=== PATIENT | male | born 1980 | race Caucasian/White ===

== ENCOUNTER 2024-04-18 13:38 | Outpatient (REF) | payer MEDICAID, SELFPAY ==
--- OUTSIDE RECORDS SUMMARY | 2024-04-18 14:40 | XMS_ITS | Encounter Summary ---
Author Organization [employer] Address [address] [facility] [address] [place] [address] Care Team Providers Care Newspaper Journalist Name Role Phone Unavailable Primary Care Provider Unavailabl e Reason for Visit * Reason Comments Pre-visit Planning SDOH negative, Tobac co screening negative. Encounter Details Date Type Department Care Team ([facility] st Contact Info) Description 04/11/2024 Patient Outreach [facility] MED & PEDS [address] [place] [address] Justen Deal MD [address] [place] [address] Pre-visit Planning (SDOH negative, Tobacco screening negative. ) Social History Tobacco Use Types Packs/Day Years Used Date Smoking Tobacco: Never Assessed Housing Stability Answer Date Recorded What is your housing situation today? I have cassi sing 04/11/[address] you li ve. Do you have problems with any of the following? None of the above 04/11/2024 Food Insecurity Answer Date Recorded Within the past 12 months, y ou worried that your food would run out before you got money to buy more: Never True 04/11/2024 Within the past 12 months,th e food you bought just didn't last and you didn't have enough money to get more: Never True Transportation Answer Date Recorded In the past 12 months, has l ack of transportation kept you from medical appts, meetings, work or from getting things needed for daily living? No 04/11/2024 Utilities Answer Date Recorded In the past 12 months, has t he electric, gas, oil or water company threatened to shut off services in your home? No 04/11/2024 Internet Access Answer Date Recorded Internet Access Q1 Yes 04/11/2024 Internet Access Q2 Not on file 04/11/2024 Sex and Gender Information Value Date Recorded Sex Assigned at Male 04/04/2024 10:30 AM EST Legal Sex Male 10:30 AM EST Gender Identity Male 04/18/2024 12:44 PM EST Sexual Orientation Straight 04/18/2024 12 :44 PM EST documented as of this encounter Progress Notes * Renée Malave - 04/11/2024 3:45 PM EST CC Renée Leon placed successful outbound call to patient for pre-visit planning. Patient name and confirmed. Patient confirms appt date and time, and has transportation arrangements. Biggest concern for appointment at this time is patient has a mass on his lower back. Appropriate screenings completed in anticipation of appointment. documented in this encounter Plan of Treatment Upcoming Encounters Date Type Department Care Team (Late st Contact Info) Description 07/17/2024 10:45 AM EDT Office Visit [facility] MED & PEDS [address] [place] [address] Justen Deal MD [address] [place] [address] documented as of this encounter Visit Diagnoses Not on filedocumented in this encounter
--- OUTSIDE RECORDS SUMMARY | 2024-04-18 14:40 | XMS_ITS | Encounter Summary ---
Author Organization [employer] Address [address] [place] [address] Care Team Providers Care Lacing Presser Name Role Phone Justen Deal MD Primary Care Provider [phone] Encounter Details Date Type Department Care Team (Latest Contact Info) Description 04/18/2024 Travel Social History Tobacco Use Types Packs/Day Years Used Date Smoking Tobacco: Former Cigarettes Smokeless Tobacco: Never Comments:Smoked 1 pack a wee k x 25 years. Quit smoking 1 year ago. Alcohol Answer Date Recorded Q1: How often do you have a drink containing alc ohol? 2 04/18/2024 Q2: How many drinks containi ng alcohol do you have on a typical day when you are drinking? 0 04/18/2024 Q3: How often do you have six or more drinks on one occasion? 2 04/18/2024 Depression Answer Date Recorded Patient Health Questionnaire-9 Score 0 04/18/2024 Patient Health Questionnaire-9 Score 0 04/18/2024 Last PHQ-9: Questionnaire Data Not on file 0 04/18/2024 Housing Stability Answer Date Recorded What is your housing situation today? I have cassi rodrigues 04/11/[address] you li [...] off services in your home? No 04/11/2024 Depression Answer Date Recorded Patient Health Questionnaire-2 Score 0 04/18/2024 Internet Access Answer Date Recorded Internet Access Q1 Yes 04/11/2024 Internet Access Q2 Not on file 04/11/2024 Sex and Gender Information Value Date Recorded Sex Assigned at Male 04/04/2024 10:30 AM EST Legal Sex Male 10:30 AM EST Gender Identity Male 04/18/2024 12:44 PM EST Sexual Orientation Straight 04/18/2024 12 :44 PM EST documented as of this encounter Plan of Treatment Upcoming Encounters Date Type Department Care Team (Late st Contact Info) Description 07/17/2024 10:45 AM EDT Office Visit [facility] MED & PEDS [address] [place] [address] Justen Deal MD [address] [place] [address] documented as of this encounter Visit Diagnoses Not on filedocumented in this encounter Additional Health Concerns Assessment Noted Time PHQ-9 Depression Total Score: 0 04/18/19 25 1:53 PM EST documented as of this encounter Care Teams Lacing Presser Relationship Specialty Start Date End Date Justen Deal MD [address] [place] [address] PCP - General Internal Medicine 04/18/24 documented as of this encounter
--- OUTSIDE RECORDS SUMMARY | 2024-04-18 14:40 | XMS_ITS | Clinical Summary ---
Author Organization [facility] ity Address [address] [place] [address] Care Team Providers Care Supervisor Contact Lens Name Role Phone Unavailable Primary Care Provider Unavailabl e Social History Tobacco Use Types Packs/Day Years Used Date Smoking Tobacco: Never Assessed Sex and Gender Information Value Date Recorded Sex Assigned at Not on file Gender Identity Not on file Sexual Orientation Not on file Plan of Treatment Health Maintenance Due Date Last Done Comments DTaP,Tdap,and Td Vaccines (1 - Tdap) 02/23/2000 Hepatitis B Vaccines (1 of 3 - 19+ 3-dose series) 02/23/2000 COVID-19 Vaccine (2023-2 5 season) 2023 Influenza Vaccine (#1) 2023 Cholesterol Screening (Lipid Panel) 12/30/2023 Depression Screening 12/30/2023 HIV Screening 12/30/2023 Hepatitis C Screening 12/30/2023 Social Influencers of Health Screening 12/30/2023 HIB Vaccines Aged Out No longer eligi ble based on patient's age to complete this topic HPV Vaccines Aged Out No longer eligi ble based on patient's age to complete this topic Hepatitis A Vaccines Aged Out No long er eligible based on patient's age to complete this topic IPV Vaccines Aged Out No longer eligi ble based on patient's age to complete this topic MMR Vaccines Aged Out No longer eligi ble based on patient's age to complete this topic Meningococcal ACWY Vaccine Aged Out N o longer eligible based on patient's age to complete this topic Pneumococcal Vaccine: Pediat rics (0 to 5 Years) and At-Risk Patients (6 to 64 Years) Aged Out No longer eligible b ased on patient's age to complete this topic RSV Immunization Patients Un jose 20 months Aged Out No longer eligible b ased on patient's age to complete this topic Varicella Vaccines Aged Out No longer eligible based on patient's age to complete this topic
--- OUTSIDE RECORDS SUMMARY | 2024-04-18 14:40 | XMS_ITS | Clinical Summary ---
Author Organization [employer] Address [address] [facility] [address] [place] [address] Care Team Providers Care Fac Engineer Name Role Phone Justen Deal MD Primary Care Provider [phone] Allergies Active Allergy Reactions Criticality Noted Date Comments Penicillin G Rash Low 04/18/2024 Medications Omeprazole 20 MG tablet delayed-releaseI ndications:Gastr oesophageal reflux disease without esophagitis Take 1 tablet (20 mg) by mouth Once per day. 30 tablet 3 Active Diclofenac Sodium 1 % gelIndications:C hronic midline low back pain without sciatica To apply to the affected area 3 times a day 100 g Active Active Problems Problem Noted Date Diagnosed Date Gastroesophageal reflux disease without esophagi tis 04/18/2024 Encounters Date Type Department Care Team Description 04/18/2024 1:00 PM EST Office Visit [facility] MED & PEDS [address] [place] [address] Justen Deal MD Gastroesophageal reflux disease without esophagitis (Primary Dx); Dietary counseling; Exercise counseling; Lactose intolerance; Chronic midline low back pain without sciatica; Dislocation of left shoulder joint, initial encounter; Overweight (BMI 25.0-29.9) 04/18/2024 Travel 04/11/2024 Patient Outreach [facility] MED & PEDS [address] [place] [address] Justen Deal MD Pre-visit Planning (SDOH negative, Tobacco screening negative. ) from Last 3 Months Family History Medical History Relation Name Comments Heart disease Father Diabetes type II Mother Heart failure Mother Hypertension Mother Kidney failure Mother Relation Name Status Comments Father Mother Social History Tobacco Use Types Packs/Day Years Used Date Smoking Tobacco: Former Cigarettes Smokeless Tobacco: Never Tobacco Cessation:Counseling Given: No Comments:Smoked 1 pack a week x 25 years. Quit smoking 1 year [...] Orientation Straight 04/18/2024 12 :44 PM EST Last Filed Vital Signs Vital Sign Reading Time Taken Comments Blood Pressure 126/84 04/18/2024 12:56 PM EST Pulse 84 04/18/2024 12:56 PM EST Temperature 36.9 ??C (98.4 ??F) 04/18/2024 12:[address] Respiratory Rate 20 04/18/2024 12:56 PM EST Oxygen Saturation 98% 04/18/2024 12:56 PM EST Inhaled Oxygen Concentration - - Weight 103 kg (227 lb) 04/18/2024 12:56 PM EST Height 190.5 cm (6' 3 ) 04/18/2024 12:56 PM EST Body Mass Index 28.37 04/18/2024 12:56 PM EST Plan of Treatment Upcoming Encounters Date Type Department Care Team (Late st Contact Info) Description 07/17/2024 10:45 AM EDT Office Visit [facility] MED & PEDS [address] [place] [address] Justen Deal MD [address] [place] [address] Health Maintenance Due Date Last Done Comments HIV Screening 1981 Lipid Panel 1981 Family Planning (PISQ) 02/23/1996 Hepatitis C Screening 1999 DTaP/Tdap/Td Vaccines (1 - Tdap) 02/23/2000 Hepatitis B Vaccines (1 of 3 - 19+ 3-dose series) 02/23/2000 COVID-19 Vaccine ( - 2023-2 5 season) 2023 Influenza Vaccine (#1) 2023 SDOH Screening 04/11/2025 04/11/2024 Alcohol/Substance Use Screening 04/18/2025 04/18/2024 Depression Screening 04/18/2025 04/18/2024, 04/18/2024 Tobacco Screening 04/18/2025 04/18/2024 Zoster Vaccines (1 of 2) 2031 RSV Patients and Patients Aged 60 years or older (1 - 1-dose 75+ series) 02/23/2056 HIB Vaccines Aged Out No longer eligi [...] patient's age to complete this topic Meningococcal Vaccine Aged Out No stephen bronwyn eligible based on patient's age to complete this topic Pneumococcal Vaccine: Pediatrics (0 to 5 Years) and At-Risk Patients (6 to 64 Years) Aged Out No longer eligible b ased on patient's age to complete this topic RSV under 20 months Aged Out No longe r eligible based on patient's age to complete this topic Rotavirus Vaccines Aged Out No longer eligible based on patient's age to complete this topic Insurance [facility] C3 Care Teams Fac Engineer Relationship Specialty Start Date End Date Justen Deal MD [address] [place] [address] PCP - General Internal Medicine 04/18/24
--- OUTSIDE RECORDS SUMMARY | 2024-04-18 14:40 | XMS_ITS | Encounter Summary ---
Author Organization [employer] Address [address] [facility] [address] [place] [address] Care Team Providers Care Cooking Show Host Name Role Phone Justen Deal MD Primary Care Provider [phone]- [phone] Reason for Referral * Consultation (Routine) - Pending Review Specialty Diagnoses / Procedures Referred By Nate carlos Referred To Contact Physical Therapy Diagnoses Chronic midline low back pain without sciatica Justen Deal MD [address] [place] [address] Phone: tel: fax: Referral ID Status Reason Start Date Expiration Date Visits Requested Visits Authorized [id number] Pending Review Specialty Services Required 04/18/2024 04/18/2025 1 1 * Consultation (Routine) - Pending Review Specialty Diagnoses / Procedures Referred By Nate carlos Referred To Contact Gastroenterology Diagnoses Gastroesophageal reflux disease without esophagitis Justen Deal MD [address] [place] [address] Phone: tel: fax: Referral ID Status Reason Start Date Expiration Date Visits Requested Visits Authorized [id number] Pending Review Specialty Services Required 04/18/2024 04/18/2025 1 1 Reason for Visit * Reason Comments GERD Back Pain Encounter Details Date Type Department Care Team (Latest Contact Info) Description 04/18/2024 1:00 PM EST Office Visit [facility] MED & PEDS [address] [place], [place] [phone] Justen Deal MD [address] [place], [place] [phone] Gastroesophageal reflux disease without esophagitis (Primary Dx); Dietary counseling; Exercise counseling; Lactose intolerance; Chronic midline low back pain without sciatica; Dislocation of left shoulder joint, initial encounter; Overweight (BMI 25.0-29.9) Social History Tobacco Use Types Packs/Day Years [...] PM EST documented as of this encounter Last Filed Vital Signs Vital Sign Reading [...] Mass Index 28.37 04/18/2024 12:56 PM EST documented in this encounter Plan of Treatment Upcoming Encounters Date Type Department Care Team (Late st Contact Info) Description 07/17/2024 10:45 AM EDT Office Visit [facility] PEDS [address] [place] [address] Justen Deal MD [address] [place] [address] Scheduled Orders Name Type Priority Associated Diagnoses Orde r Schedule XR Lumbar Spine Complete 4+ Views Imaging Routine Chronic midline low back pain without sciatica Expected: 04/18/2024, Expires: 04/18/2025 CBC auto differential Lab Routine Gastroesophageal reflux disease without esophagitis Expected: 04/18/2024 (Approximate), Expires: 04/18/2025 Comprehensive Metabolic Panel Lab Routine Gastroesophageal reflux disease without esophagitis Overweight (BMI 25.0-29.9) Expected: 04/18/2024 (Approximate), Expires: 04/18/2025 Hepatitis C Antibody with Reflex to HCV, RNA, Quantitative, Real-Time PCR Lab Routine Gastroesophageal reflux disease without esophagitis Lactose intolerance Overweight (BMI 25.0-29.9) Expected: 04/18/2024, Expires: 04/18/2025 HIV-1/2 Antigen and Antibodies, Fourth Generation, with Reflexes Lab Routine Gastroesophageal reflux disease without esophagitis Lactose intolerance Overweight (BMI 25.0-29.9) Expected: 04/18/2024 (Approximate), Expires: 04/18/2025 Lipid Panel, Standard Lab Routine Gastroesophageal reflux disease without esophagitis Lactose intolerance Overweight (BMI 25.0-29.9) Expected: 04/18/2024 (Approximate), Expires: 04/18/2025 TSH W/Reflex to FT4 Lab Routine Gastroesophageal reflux disease without esophagitis Lactose intolerance Overweight (BMI 25.0-29.9) Expected: 04/18/2024 (Approximate), Expires: 04/18/2025 Scheduled Referrals Name Type Priority Associated Diagnoses Order Schedule Referral to Gastroenterology Outpatient Referral Routine Gastroesophageal reflux disease without esophagitis Expected: 04/18/2024 (Approximate), Expires: 04/18/2025 Referral to Physical Therapy Outpatient Referral Routine Chronic midline low back pain without sciatica Expected: 04/18/2024 (Approximate), Expires: 04/18/2025 documented as of this encounter Visit Diagnoses Diagnosis Gastroesophageal reflux disease without esophagitis- Primary Esophageal reflux Dietary counseling Dietary surveillance and counseling Exercise counseling Lactose intolerance Intestinal disaccharidase deficiencies and disaccharide malabsorption Chronic midline low back pain without sciatica Dislocation of left shoulder joint, initial encounter Overweight (BMI 25.0-29.9) Overweight documented in this encounter Additional Health Concerns Assessment Noted Time PHQ-9 Depression Total Score: 0 04/18/19 1:53 PM EST documented as of this encounter Care Teams Cooking Show Host Relationship Specialty Start Date End Date Justen Deal MD [address] [place] [id number] PCP - General Internal Medicine 04/18/24 documented as of this encounter
[2024-04-18 17:49] LABS: MANUAL DIFF FLAG NO
[2024-04-18 17:58] LABS: Basophils Percent Auto 0.2 % (0-2); Eosinophils Absolute Auto 0.1 X10*3/uL (0.0-0.4); Eosinophils Percent Auto 1.3 % (0-4); Hematocrit 49.2 % (42.0-52.0); Hemoglobin 16.2 g/dl (14.0-18.0); Imm Gran Abs Auto 0.03 X10*3/uL (0.00-0.03); Imm Gran Pct Auto 0.3 % (0.0-0.4); Lymphocytes Absolute Auto 2.1 X10*3/uL (1.2-4.9); Lymphocytes Percent Auto 22.9 % (20-40); Mean Corpuscular HGB Conc 32.9 g/dl (31.0-36.0); Mean Corpuscular Hemoglobin 29.3 pg (27.0-33.0); Mean Platelet Volume 10.4 fL (9.4-12.4); Monocytes Absolute Auto 0.6 X10*3/uL (0.1-1.2); Monocytes Percent Auto 6.3 % (2-11); Neutrophils Absolute Auto 6.4 x10*3/uL (2.0-8.3); Platelet Count 246 X10*3/uL (160-400); Red Blood Count 5.53 X10*6/uL (4.60-5.80); Red Cell Distribution Width 13.1 % (11.0-16.0); White Blood Count 9.3 X10*3/uL (4.8-10.8)
[2024-04-18 18:20] LABS: Alanine Aminotransferase 88 U/L (0-40); Albumin Level 4.6 g/dL (3.5-5.0); Alkaline Phosphatase 73 U/L (39-117); Anion Gap 11 (12-20); Aspartate Amino Transferase 53 U/L (5-37); Bilirubin Total 0.4 mg/dL (0.0-1.0); Blood Urea Nitrogen 14 mg/dL (9-16); Carbon Dioxide 24 mmol/L (22-29); Chloride 108 mmol/L (96-108); Cholesterol 149 mg/dL (<200); Estimated Glomerular Filt Rate > 60; Glucose Random 100 mg/dL (60-115); HDL Cholesterol 31 mg/dL (>40); LDL Cholesterol Calculated 92 mg/dL (<100); Sodium 139 mmol/L (135-145); Triglycerides 131 mg/dL (<150)
[2024-04-18 18:22] LABS: TSH reflex Free T4 1.44 uIU/mL (0.32-4.0)
[2024-04-19 03:56] LABS: HIV AB/AG Nonreactive (Nonreactive); HIV Num 1 0.04 S/CO (0.00-0.99); ~HepC Num1 0.14 S/CO (0.00-0.79); ~Hepatitis C Antibody Nonreactive (Nonreactive)
== END 2024-04-18 13:39 | disposition home or self-care (01) ==
LOC: HO.CHCLDS 13:38
PROVIDERS: Visit Provider Internal Medicine
DX: K21.9 Gastro-esophageal reflux disease without esophagitis (principal); E73.9 Lactose intolerance, unspecified; E66.3 Overweight
CPT/HCPCS: 36415; 80053; 80061; 84443; 85025; 86803; 87389

== ENCOUNTER 2024-04-20 14:02 | Outpatient (REF) | payer MEDICAID, SELFPAY ==
--- NOTE | ~2024-04-20 | XR_ITS ---
EXAMINATION: XR LUMBOSACRAL SPINE CLINICAL INFORMATION: PAIN COMPARISON: None available. TECHNIQUE: Three views of the lumbosacral spine. FINDINGS: There is normal lordosis. There is no scoliosis. There is normal alignment. No fractures, compression deformities, or suspicious bone lesions. Mild disc degeneration L5-S1. Mild facet degeneration L4-5 and L5-S1. Normal facet alignment. Normal sacrum and SI joints. Normal soft tissues. XR/XR lumbar spine 2-3V IMPRESSION: 1. No acute findings of the lumbar spine. 2. Mild degenerative disc changes L5-S1 and facet changes L4-5 and L5-S1. Electronically signed by: Joby Salamanca MD 04/20/2024 02:36 PM [facility]
--- OUTSIDE RECORDS SUMMARY | 2024-04-20 17:57 | XMS_ITS | Encounter Summary ---
Author Organization [employer] Address [address] [facility] [address] [place] [address] Care Team Providers Care Fur Weigher Name Role Phone Justen Deal MD Primary Care Provider [phone] Reason for Referral * Consultation (Routine) - Closed Specialty Diagnoses / Procedures Referred By Nate carlos Referred To Contact Physical Therapy Diagnoses Chronic midline low back pain without sciatica Justen Deal MD [address] [place] [address] Phone: tel: fax: Physical Therapy, AT [address] [place] [address] Dr Nielsen [place], [place] Phone: tel: fax: Referral ID Status Reason Start Date Expiration Date V isits Requested Visits Authorized [id number] Closed Specialty Services Required 04/18/2024 04/18/2025 1 1 * Consultation (Routine) - Authorized Specialty Diagnoses / Procedures Referred By Nate carlos Referred To Contact Gastroenterology Diagnoses Gastroesophageal reflux disease without esophagitis Justen Deal MD [address] [place] [address] Phone: tel: fax: [facility] [address] [place], [place] Phone: tel: fax: Referral ID Status Reason Start Date Expiration Date Visits Requested Visits Authorized [id number] Authorized Specialty Services Required 04/18/2024 04/18/2025 1 1 Reason for Visit * Reason Comments GERD Back Pain Encounter Details Date Type Department Care Team (Latest Contact Info) Description 04/18/2024 1:00 PM EST Office Visit [facility] P[facility]S [address] [place] [address] Justen Deal MD [address] [place] [address] Gastroesophageal reflux disease without esophagitis (Primary Dx); [...] your housing situation today? I have cassi lilia 04/11/[address] you li [...] 12:56 PM EST documented in this encounter Progress Notes * Justen Deal MD - 04/18/2024 1:00 PM EST Images from the original note were not included. Subjective Patient ID: Yrn Payne is a 44 y.o. male who presents for GERD and Back Pain. GERD He complains of belching and heartburn. He reports no abdominal pain, no chest pain, no choking, nocoughing, no dysphagia, no early satiety, no globus sensation, no hoarse voice, no nausea, no sore throat, no stridor, no tooth decay, no water brash or no wheezing. This is a chronic problem. The problem occurs frequently. The problem has been unchanged. The heartburn duration is more than one hour. The heartburn is located in the substernum. The heartburn is of moderate intensity. The heartburnwakes him from sleep. The heartburn does not limit his activity. The heartburn doesn't change with position. The symptoms are aggravated by certain foods. Pertinent negatives include no anemia, fatigue, melena, muscle weakness, orthopnea or weight loss. Back Pain This is a chronic problem. The current episode started more than 1 year ago. The problem occurs intermittently. The problem has been gradually worsening since onset. The pain is present in the lumbarspine. The quality of the pain is described as aching. The pain is at a severity of 3/10. Pertinentnegatives include no abdominal pain, bladder incontinence, bowel incontinence, chest pain, dysuria,numbness, paresis, paresthesias, pelvic pain, perianal numbness or weight loss. Low back pain worse with movements: Bending forward, Sweeping, Shoveling,. The back pain started while at work in [place] the airport. Fell from a flight of stairs. Was taken to the hospital, his left shoulder dislocation was treated and referred to physical therapy. Did not get therapy for the back. Has not been treated for his back since then. Also has h/o left shoulder dislocation since his fall. Recent ED visit at [facility] for a episode of left shoulder dislocation while in his sleep. Review of Systems Constitutional: Negative for fatigue and weight loss. HENT: Negative for hoarse voice and sore throat. Respiratory: Negative for cough, choking and wheezing. Cardiovascular: Negative for chest pain. Gastrointestinal: Positive for heartburn. Negative for abdominal pain, bowel incontinence, dysphagia, melena and nausea. Genitourinary: Negative for bladder incontinence, dysuria and pelvic pain. Musculoskeletal: Positive for back pain. Negative for muscle weakness. Neurological: Negative for numbness and paresthesias. Objective Physical Exam Constitutional: General: He is not in acute distress. Appearance: Normal appearance. He is not ill-appearing, toxic-appearing or diaphoretic. Cardiovascular: Rate and Rhythm: Normal rate. Pulmonary: Effort: Pulmonary effort is normal. Abdominal: Comments: Longitudinal scar of the abdomen and of the left upper quadrant Neurological: Mental Status: He is alert. Assessment/Plan Diagnoses and all orders for this visit: Gastroesophageal reflux disease without esophagitis Comments: Head of bed elevation Avoid eating 3 hours prior to bedtime Avoid dietary irritants. Orders: - Referral to Gastroenterology; Future - Omeprazole 20 MG tablet delayed-release; Take 1 tablet (20 mg) by mouth Once per day. - CBC auto differential; Future - Comprehensive Metabolic Panel; Future - Hepatitis C Antibody with Reflex to HCV, RNA, Quantitative, Real-Time PCR; Future - HIV-1/2 Antigen and Antibodies, Fourth Generation, with Reflexes; Future - Lipid Panel, Standard; Future - TSH W/Reflex to FT4; Future Dietary counseling Exercise counseling Lactose intolerance Comments: Avoid dairy products. Orders: - Hepatitis C Antibody with Reflex to HCV, RNA, Quantitative, Real-Time PCR; Future - HIV-1/2 Antigen and Antibodies, Fourth Generation, with Reflexes; Future - Lipid Panel, Standard; Future - TSH W/Reflex to FT4; Future Chronic midline low back pain without sciatica - XR Lumbar Spine Complete 4+ Views; Future - Referral to Physical Therapy; Future - Diclofenac Sodium 1 % gel; To apply to the affected area 3 times a day Dislocation of left shoulder joint, initial encounter Overweight (BMI 25.0-29.9) - Comprehensive Metabolic Panel; Future - Hepatitis C Antibody with Reflex to HCV, RNA, Quantitative, Real-Time PCR; Future - HIV-1/2 Antigen and Antibodies, Fourth Generation, with Reflexes; Future - Lipid Panel, Standard; Future - TSH W/Reflex to FT4; Future documented in this encounter Miscellaneous Notes * Addendum Note - Negin Keller MA - 04/18/2024 1:00 PM ESTAddended by: NEGIN KELLER on: 04/20/2024 02:40 PM Modules accepted: Orders documented in this encounter Plan of Treatment Upcoming Encounters Date Type Department Care Team (Late st Contact Info) Description 07/17/2024 10:45 AM EDT Office Visit [facility] MED & PEDS [address] [place] [address] Justen Deal MD [address] [place] [address] Scheduled Referrals Name Type Priority Associated Diagnoses Order Schedule Referral to Gastroenterology Outpatient Referral Routine Gastroesophageal reflux disease without esophagitis Expected: 04/18/2024 (Approximate), Expires: 04/18/2025 Referral to Physical Therapy Outpatient Referral Routine Chronic midline low back pain without sciatica Expected: 04/18/2024 (Approximate), Expires: 04/18/2025 documented as of this encounter Procedures Procedure Name Priority Date/Time Associated Diagnosis Comments XR LUMBAR SPINE 2-3 VIEWS Routine 04/20/2024 2:08 PM EST Chronic midline low back pain without sciatica TSH W/REFLEX TO FT4 Routine 04/18/2024 1 :43 PM EST Gastroesophageal reflux disease without esophagitis Lactose intolerance Overweight (BMI 25.0-29.9) CBC WITH AUTO DIFFERENTIAL Routine 04/18/2024 1:43 PM EST Gastroesophageal reflux disease without esophagitis HEPATITIS C AB W/REFL TO HCV RNA, QN, PCR Routine 04/18/2024 1:43 PM EST Gastroesophageal reflux disease without esophagitis Lactose intolerance Overweight (BMI 25.0-29.9) HIV 1/2 ANTIGEN/ANTIBODY, FOURTH GENERATION W/RFL Routine 04/18/2024 1:43 PM EST Gastroesophageal reflux disease without esophagitis Lactose intolerance Overweight (BMI 25.0-29.9) LIPID PANEL, STANDARD Routine 04/18/2024 1:43 PM EST Gastroesophageal reflux disease without esophagitis Lactose intolerance Overweight (BMI 25.0-29.9) COMPREHENSIVE METABOLIC PANEL Routine 04/18/2024 1:43 PM EST Gastroesophageal reflux disease without esophagitis Overweight (BMI 25.0-29.9) documented in this encounter Results * XR Lumbar Spine 2-3 Views (04/20/2024 2:08 PM EST) Anatomical Region Laterality Modality Spine, L-spine Radiographic Annelise ging 04/20/2024 2:08 PM EST Narrative 04/20/2024 2:40 PM EST ?[facility] ?[address] ?[place] [address] ?XRay Report ? Signed ? Patient: Elmer,Yrn ?MR#: [id number] ?? [id number] ? : 1980 ?Acct:[id number] ? Age/Sex: 44 / M ?ADM Date: 01/30/25 ? Loc: HO.HHCX ? Attending Dr: Justen Deal MD ? Ordering Physician: Justen Deal MD ?? Date of Service: 04/20/24 ?? Procedure(s): XR lumbar spine 2-3V ?? Accession Number(s): [id number] ? cc: Justen Deal MD ? EXAMINATION: ?? XR LUMBOSACRAL SPINE ? CLINICAL INFORMATION: ?? PAIN ? COMPARISON: ?? None available. ? TECHNIQUE: ?? Three views of the lumbosacral spine. ? FINDINGS: ?? There is normal lordosis. There is no scoliosis. There is normal ?? alignment. ?? No fractures, compression deformities, or suspicious bone lesions. ?? Mild disc degeneration L5-S1. ?? Mild facet degeneration L4-5 and L5-S1. Normal facet alignment. ?? Normal sacrum and SI joints. ? Normal soft tissues. ? XR/XR lumbar spine 2-3V ?? IMPRESSION: ?? 1. No acute findings of the lumbar spine. ?? 2. Mild degenerative disc changes L5-S1 and facet changes L4-5 and ?? L5-S1. ? Electronically signed by: ??Joby Salamanca MD ??04/20/2024 02:36 PM EST RP ? Dictated By: ?Joby Salamanca MD ? Signed By: ?<Electronically signed by Joby Salamanca MD in OV> ?04/20/24 1436 ? DD/ 1408 ? TD/TT: 04/20/24 1420 ? Sawyer Helper: ? Procedure Note Elpidio, Image - 04/20/[address] [address] XRay Report Signed Patient: Anne-Marie Payne#: [id number] : 1980Acct:[id number] Age/Sex: 44 / MADM Date: 04/20/24 Loc: HO.HHCX Attending Dr: Justen Deal MD Ordering Physician: Justen Deal MD Date of Service: 04/20/24 Procedure(s): XR lumbar spine 2-3V Accession Number(s): [id number] cc: Justen Deal MD EXAMINATION: XR LUMBOSACRAL SPINE CLINICAL INFORMATION: PAIN COMPARISON: None available. TECHNIQUE: Three views of the lumbosacral spine. FINDINGS: There is normal lordosis. There is no scoliosis. There is normal alignment. No fractures, compression deformities, or suspicious bone lesions. Mild disc degeneration L5-S1. Mild facet degeneration L4-5 and L5-S1. Normal facet alignment. Normal sacrum and SI joints. Normal soft tissues. XR/XR lumbar spine 2-3V IMPRESSION: 1. No acute findings of the lumbar spine. 2. Mild degenerative disc changes L5-S1 and facet changes L4-5 and L5-S1. Electronically signed by: Joby Salamanca MD 04/20/2024 02:36 PM EST RP Workstation: [id number] Dictated By: Joby Salamanca MD Signed By: <Electronically signed by Joby Salamanca MD in OV> 04/20/24 1436 DD/ 1408 TD/TT: 04/20/24 1420 Sawyer Helper: Justen Deal MD IMG XR PROCEDURES Final Res ult * TSH W/Reflex to FT4 (04/18/2024 1:43 PM EST) TSH reflex Free T4 1.44 0.32 - 4.0 uIU/mL [facility] Blood Venous blood specimen / Unknown 04/18/2024 1:43 PM EST 04/18/2024 5:46 PM EST Justen Deal MD LAB BLOOD ORDERABLES Final Result [facility] [address] [place] [phone] * (ABNORMAL) Lipid Panel, Standard (04/18/2024 1:43 PM EST) Triglycerides 131 <150 mg/dL [facility] Comment:Desirable Triglyceri de: less than 150 mg/dLBorderline High Triglyceride 150-199 mg/dLHigh Triglyceride: 200-499 mg/dLVery High Triglyceride: greater than or equal to 5OO mg/dL Cholesterol 149 <200 mg/dL [facility] Comment:Desirable Cholestero l: less than 200 mg/dLBorderline High Cholesterol: 200-239 mg/dLHigh Cholesterol: greater than 239 mg/dL LDL Cholesterol Calculated 92 <100 mg/dL [facility] Comment:Desirable LDL: less than 100 mg/dLNear Optimal/Above Optimal LDL: 110- 129 mg/dLBorderline High LDL: 130-159 mg/dLHigh LDL: 160-189 mg/dLVery High LDL: greater than or equal to 190 mg/dL HDL Cholesterol 31(L) >40 mg/dL [facility] Comment:Desirable HDL: great er than 40 mg/dL Note: This HDL assay may give artificially low results in patients with liver disease. Blood Venous blood specimen / Unknown 04/18/2024 1:43 PM EST 04/18/2024 5:46 PM EST us Justen Deal MD LAB BLOOD ORDERABLES Final Result [facility] [address] [place] [phone] * HIV-1/2 Antigen and Antibodies, Fourth Generation, with Reflexes (04/18/2024 1:43 PM EST) HIV AB/AG Nonreactive Nonreactive [facility] Comment:HIV-1 p24 Ag and/or HIV-1/HIV-2 Ab not detected.A test result that is nonreactive does not exclude thepossibility of exposure to or infection with HIV-1 and/orHIV-2. Nonreactive results in this assay for individualswith prior exposure to HIV-1 and/or HIV-2 may be due toantigen and antibody levels that are below the limit ofdetection of this assay.The [place] HIV Ag/Ab Combo assay result andsupplemental assay results should be interpreted inconjunction with the patient's clinical presentation,history and other laboratory results. If the results areinconsistent with clinical evidence, additional testing issuggested to confirm the result. Blood Venous blood specimen / Unknown 04/18/2024 1:43 PM EST 04/18/2024 5:46 PM EST Justen Deal MD LAB BLOOD ORDERABLES Final Result Performing Organization Address [facility] de Phone Number [facility] [address] [place] [phone] * Hepatitis C Antibody with Reflex to HCV, RNA, Quantitative, Real-Time PCR (04/18/2024 1:43 PM EST) Pathologist [facility] Hepatitis C Antibody Nonreactive Nonreactive [facility] Comment:Antibodies to HCV no t detected; does not exclude early acuteHCV infection. Blood Venous blood specimen / Unknown 04/18/2024 1:43 PM EST 04/18/2024 5:46 PM EST Justen Deal MD LAB BLOOD ORDERABLES Final Result Performing Organization Address [facility] Phone Number [facility] [address] [place] [phone] * (ABNORMAL) Comprehensive Metabolic Panel (04/18/2024 1:43 PM EST) Pathologist [facility] Sodium 139 135 - 145 mmol/L [facility] Potassium 4.0 3.3 - 5.1 mmol/L [facility] Chloride 108 96 - 108 mmol/L [facility] Carbon Dioxide 24 22 - 29 mmol/L [facility] Anion Gap 11(L) 12 - 20 [facility] Urea Nitrogen (BUN) 14 9 - 16 mg/dL [facility] Creatinine, Serum 1.03 0.5 - 1.4 mg/dL [facility] Estimated Glomerular Filt Rate >60 [facility] Comment:Chronic Kidney Disea se: Estimated GFR < 60 mL/min/1.65x4Avqqpr Kidney Disease: Estimated GFR < 15 mL/min/1.73m2 Glucose 100 60 - 115 mg/dL [facility] Calcium 9.0 8.4 - 10.2 mg/dL [facility] Bilirubin, Total 0.4 0.0 - 1.0 mg/dL [facility] Aspartate Amino Transferase 53(H) 5 - 37 U/L [facility] Alanine Aminotransferase 88(H) 0 - 40 U/L [facility] Total Protein 8.0 6.5 - 8.0 g/dL [facility] Albumin Level 4.6 3.5 - 5.0 g/dL [facility] Alkaline Phosphatase 73 39 - 117 U/L [facility] Blood Venous blood specimen / Unknown 04/18/2024 1:43 PM EST 04/18/2024 5:46 PM EST us Justen Deal MD LAB BLOOD ORDERABLES Final Result Performing Organization Address City/State/[facility] Co de Phone Number [facility] [address] [place] [phone] * CBC auto differential (04/18/2024 1:43 PM EST) White Blood Count 9.3 4.8 - 10.8 X10*3/uL [facility] Red Blood Count 5.53 4.60 - 5.80 X10*6/uL [facility] Hemoglobin 16.2 14.0 - 18.0 g/dl [facility] Hematocrit 49.2 42.0 - 52.0 % [facility] Mean Corpuscular Volume 89.0 80.0 - 98.0 fL [facility] Mean Corpuscular Hemoglobin 29.3 27.0 - 33.0 pg [facility] Mean Corpuscular HGB Conc 32.9 31.0 - 36.0 g/dl [facility] Red Cell Distribution Width 13.1 11.0 - 16.0 % [facility] Platelet Count 246 160 - 400 X10*3/uL [facility] Mean Platelet Volume 10.4 9.4 - 12.4 fL [facility] Neutrophils Percent Auto 69.0 45 - 73 % [facility] Imm Gran Pct Auto 0.3 0.0 - 0.4 % [facility] Lymphocytes Percent Auto 22.9 20 - 40 % [facility] Monocytes Percent Auto 6.3 2 - 11 % [facility] Eosinophils Percent Auto 1.3 0 - 4 % [facility] Basophils Percent Auto 0.2 0 - 2 % [facility] NRBC Pct Auto 0.0 0.0 - 0.2 /100WBC [facility] Neutrophils Absolute Auto 6.4 2.0 - 8.3 x10*3/uL [facility] Imm Gran Abs Auto 0.03 0.00 - 0.03 X10*3/uL [facility] Lymphocytes Absolute Auto 2.1 1.2 - 4.9 X10*3/uL [facility] Monocytes Absolute Auto 0.6 0.1 - 1.2 X10*3/uL [facility] Eosinophils Absolute Auto 0.1 0.0 - 0.4 X10*3/uL [facility] Basophils Absolute Auto 0.0 0.0 - 0.2 X10*3/uL [facility] NRBC Abs Auto 0.000 0.0 - 0.012 X10*3/uL [facility] Blood Venous blood specimen / Unknown 04/18/2024 1:43 PM EST 04/18/2024 5:46 PM EST us Justen Deal MD LAB BLOOD ORDERABLES Final Result [facility] [address] [place] [phone] documented in this encounter Visit Diagnoses Diagnosis Gastroesophageal reflux [...] documented as of this encounter Care Teams Fur Weigher Relationship Specialty Start Date End Date Justen Deal MD [address] [place] [phone] PCP - General Internal Medicine 04/18/24 documented as of this encounter
--- OUTSIDE RECORDS SUMMARY | 2024-04-20 17:57 | XMS_ITS | Clinical Summary ---
Author Organization [facility] ity Address [address] [place] [address] Care Team Providers Care On Air Director Name Role Phone Unavailable Primary Care Provider [...]
--- OUTSIDE RECORDS SUMMARY | 2024-04-20 17:57 | XMS_ITS | Encounter Summary ---
Author Organization [employer] Address [address] [facility] [address] [place] [address] Care Team Providers Care Service Learning Coordinator Name Role Phone Unavailable Primary Care Provider Unavailabl e Reason for Visit * Reason Comments Pre-visit Planning SDOH negative, Tobac co screening negative. Encounter Details Date Type Department Care Team ([facility] st Contact Info) Description 04/11/2024 Patient Outreach [facility] [address] [place] [address] Justen Deal MD [address] [place], [place] [phone] Pre-visit Planning (SDOH negative, Tobacco screening negative. [...] Description 07/17/2024 10:45 AM EDT Office Visit [facility] MED [facility] PED[facility] [address] [place] [address] Justen Deal MD [address] [place] [address] documented as of this encounter Visit Diagnoses Not on filedocumented in this encounter
--- OUTSIDE RECORDS SUMMARY | 2024-04-20 17:57 | XMS_ITS | Clinical Summary ---
Author Organization [employer] Address [address] [facility] [address] [place] [address] Care Team Providers Care Leaf Coverer Name Role Phone Justen Deal MD Primary Care Provider Allergies Active Allergy Reactions Criticality Noted Date Comments Penicillin G Rash Low 04/18/2024 Medications Omeprazole 20 MG tablet delayed-releaseI ndications:Gastr oesophageal reflux disease without esophagitis Take 1 tablet (20 mg) by mouth Once per day. 30 tablet 3 Active Diclofenac Sodium 1 % gelIndications:C hronic midline low back pain without sciatica To apply to the affected area 3 times a day 100 g 5 Active Active Problems Problem Noted Date Diagnosed Date Gastroesophageal reflux disease without esophagi tis 04/18/2024 Encounters Date Type Department Care Team Description 04/18/2024 1:00 PM EST Office Visit [facility] [address] [place] [address] Justen Deal MD Gastroesophageal reflux disease without esophagitis (Primary Dx); Dietary counseling; Exercise counseling; Lactose intolerance; Chronic midline low back pain without sciatica; Dislocation of left shoulder joint, initial encounter; Overweight (BMI 25.0-29.9) 04/18/2024 Travel 04/11/2024 Patient Outreach [facility] [address] [place] [address] Justen Deal MD Pre-visit Planning (SDOH negative, [...] Description 07/17/2024 10:45 AM EDT Office Visit [facility] [address] [place] [address] Justen Deal MD [address] [place], [place] [phone] Health Maintenance Due Date Last Done Comments Family Planning (PISQ) 02/23/1996 DTaP/Tdap/Td Vaccines (1 - Tdap) 02/23/2000 Hepatitis B Vaccines (1 of 3 - 19+ 3-dose series) 02/23/2000 COVID-19 Vaccine (2023-2 5 season) 2023 Influenza Vaccine (#1) 2023 SDOH Screening 04/11/2025 04/11/2024 Alcohol/Substance Use Screening 04/18/2025 04/18/2024 Depression Screening 04/18/2025 04/18/2024, 04/18/2024 Tobacco Screening 04/18/2025 04/18/2024 Lipid Panel 04/18/2029 04/18/2024 Zoster Vaccines (1 of 2) 2031 RSV Patients and Patients Aged 60 years or older (1 - 1-dose 75+ series) 02/23/2056 HIV Screening Completed 04/18/2024 Hepatitis C Screening Completed 04/18/2024 HIB Vaccines Aged Out No longer eligi [...] 5 Years) and At-Risk Patients (6 to 49) Years) Aged Out No longer eligible b ased on patient's age to complete this topic RSV under 20 months Aged Out No longe r eligible based on patient's age to complete this topic Rotavirus Vaccines Aged Out No longer eligible based on patient's age to complete this topic Procedures Procedure Name Priority Date/Time Associated Diagnosis [...] without esophagitis Lactose intolerance Overweight (BMI 25.0-29.9) HEPATITIS C AB W/REFL TO HCV RNA, QN, PCR Routine 04/18/2024 1:43 PM EST Gastroesophageal reflux disease without esophagitis Lactose intolerance Overweight (BMI 25.0-29.9) COMPREHENSIVE METABOLIC PANEL Routine 04/18/2024 1:43 PM EST Gastroesophageal reflux disease without esophagitis Overweight (BMI 25.0-29.9) CBC WITH AUTO DIFFERENTIAL Routine 04/18/2024 1:43 PM EST Gastroesophageal reflux disease without esophagitis from Last 3 Months Results * XR Lumbar Spine 2-3 Views (04/20/2024 2:08 PM EST) Anatomical Region Laterality Modality Spine, L-spine Radiographic Annelise ging 04/20/2024 2:08 PM EST Narrative 04/20/2024 2:40 PM EST ?[facility] ?[address] ?[place] [address] ?XRay Report ? Signed ? Patient: Elmer,Yrn ?MR#: [id number] ?? [id number] ? : 1980 ?Acct:[id number] ? Age/Sex: 44 / M ?ADM Date: 04/20/24 ? Loc: HO.HHCX ? Attending Dr: Justen Dela MD ? Ordering Physician: Justen Deal MD ?? Date of Service: 04/20/24 ?? Procedure(s): XR lumbar spine 2-3V ?? Accession Number(s): [id number] ? cc: Justen Deal MD ? EXAMINATION: [...] Salamanca MD ??04/20/2024 02:36 PM EST RP ?? Workstation: [id number] ? Dictated By: ?Joby Salamanca MD ? Signed By: ?<Electronically signed by Joby Salamanca MD in OV> ?04/20/24 1436 ? DD/ 1408 ? TD/TT: 04/20/24 1420 ? Lead Maintenance Technician: ? Procedure Note Rui Magallanes - 04/20/2024 [facility] [address] [facility] [place] [address] XRay Report Signed Patient: ElmerJaydenEstella#: [id number] : 1980Acct:[id number] Age/Sex: 44 / MADM Date: 04/20/24 Loc: HO.HHCX Attending Dr: Justen Deal MD Ordering Physician: Justen Deal MD Date of Service: 04/20/24 Procedure(s): XR lumbar spine 2-3V Accession Number(s): [id number] cc: Justen Deal MD EXAMINATION: XR LUMBOSACRAL [...] Salamanca MD 04/20/2024 02:36 PM EST RP Dictated By: Joby Salamanca MD Signed By: <Electronically signed by Joby Salamanca MD in OV> 04/20/24 1436 DD/ 1408 TD/TT: 04/20/24 1420 Lead Maintenance Technician: us Justen Deal MD IMG XR PROCEDURES Final Res ult * TSH W/Reflex to FT4 (04/18/2024 1:43 PM EST) TSH reflex Free T4 1.44 0.32 - 4.0 uIU/mL [facility] Blood Venous blood specimen / Unknown 04/18/2024 1:43 PM EST 04/18/2024 5:46 PM EST Justen Deal MD LAB BLOOD ORDERABLES Final Result [facility] [address] [place] [phone] * CBC auto differential (04/18/2024 1:43 PM EST) White Blood Count 9.3 4.8 - 10.8 X10*3/uL [facility] Red Blood Count 5.53 4.60 - 5.80 X10*6/uL [facility] Hemoglobin 16.2 14.0 - 18.0 g/dl [facility] Hematocrit 49.2 42.0 - 52.0 % [facility] Mean Corpuscular Volume 89.0 80.0 - 98.0 fL [facility] Mean Corpuscular Hemoglobin 29.3 27.0 - 33.0 pg [facility] Mean Corpuscular HGB Conc 32.9 31.0 - 36.0 g/dl [facility] Red Cell Distribution Width 13.1 11.0 - 16.0 % [facility] Platelet Count 246 160 - 400 X10*3/uL [facility] Mean Platelet Volume 10.4 9.4 - 12.4 fL [facility] Neutrophils Percent Auto 69.0 45 - 73 % [facility] Imm Gran Pct Auto 0.3 0.0 - 0.4 % [facility] Lymphocytes Percent Auto 22.9 20 - 40 % [facility] Monocytes Percent Auto 6.3 2 - 11 % [facility] Eosinophils Percent Auto 1.3 0 - 4 % [facility] Basophils Percent Auto 0.2 0 - 2 % [facility] NRBC Pct Auto 0.0 0.0 - 0.2 /100WBC [facility] Neutrophils Absolute Auto 6.4 2.0 - 8.3 x10*3/uL [facility] Imm Gran Abs Auto 0.03 0.00 - 0.03 X10*3/uL [facility] Lymphocytes Absolute Auto 2.1 1.2 - 4.9 X10*3/uL [facility] Monocytes Absolute Auto 0.6 0.1 - 1.2 X10*3/uL [facility] Eosinophils Absolute Auto 0.1 0.0 - 0.4 X10*3/uL [facility] Basophils Absolute Auto 0.0 0.0 - 0.2 X10*3/uL [facility] NRBC Abs Auto 0.000 0.0 - 0.012 X10*3/uL [facility] Blood Venous blood specimen / Unknown 04/18/2024 1:43 PM EST 04/18/2024 5:46 PM EST us Justen Deal MD LAB BLOOD ORDERABLES Final Result Performing Organization Address [facility]/ZIP Co de Phone Number [facility] [address] [place] [phone] * Hepatitis C Antibody with Reflex to HCV, RNA, Quantitative, Real-Time PCR (04/18/2024 1:43 PM EST) Hepatitis C Antibody Nonreactive Nonreactive [facility] Comment:Antibodies to HCV no t detected; does not exclude early acuteHCV infection. Blood Venous blood specimen / Unknown 04/18/2024 1:43 PM EST 04/18/2024 5:46 PM EST us Justen Deal MD LAB BLOOD ORDERABLES Final Result Performing Organization Address [facility] Co de Phone Number [facility] [address] [place] [phone] * HIV-1/2 Antigen and Antibodies, Fourth Generation, with Reflexes (04/18/2024 1:43 PM EST) HIV AB/AG Nonreactive Nonreactive [facility] Comment:HIV-1 p24 Ag and/or HIV-1/HIV-2 Ab not detected.A test result that is nonreactive does not exclude thepossibility of exposure to or infection with HIV-1 and/orHIV-2. Nonreactive results in this assay for individualswith prior exposure to HIV-1 and/or HIV-2 may be due toantigen and antibody levels that are below the limit ofdetection of this assay.[employer] HIV Ag/Ab Combo assay result andsupplemental assay results should be interpreted inconjunction with the patient's clinical presentation,history and other laboratory results. If the results areinconsistent with clinical evidence, additional testing issuggested to confirm the result. Blood Venous blood specimen / Unknown 04/18/2024 1:43 PM EST 04/18/2024 5:46 PM EST us Justen Deal MD LAB BLOOD ORDERABLES Final Result Performing Organization Address City/[facility] Co de Phone Number [facility] [address] [place] [phone] * (ABNORMAL) Lipid Panel, Standard (04/18/2024 1:43 PM EST) Triglycerides 131 <150 mg/dL [facility] Comment:Desirable Triglyceri de: less than 150 mg/dLBorderline High Triglyceride 150-199 mg/dLHigh Triglyceride: 200-499 mg/dLVery High Triglyceride: greater than or equal to 5OO mg/dL Cholesterol 149 <200 mg/dL [facility] Comment:Desirable Cholestero l: less than 200 mg/dLBorderline High Cholesterol: 200-239 mg/dLHigh Cholesterol: greater than 239 mg/dL LDL Cholesterol Calculated 92 <100 mg/dL [facility] Comment:Desirable LDL: less than 100 mg/dLNear Optimal/Above Optimal LDL: 110- 129 mg/dLBorderline High LDL: 130-159 mg/dLHigh LDL: 160-189 mg/dLVery High LDL: greater than or equal to 190 mg/dL HDL Cholesterol 31(L) >40 mg/dL [facility] Comment:Desirable HDL: great er than 40 mg/dL Note: This HDL assay may give artificially low results in patients with liver disease. Blood Venous blood specimen / Unknown 04/18/2024 1:43 PM EST 04/18/2024 5:46 PM EST us Justen Deal MD LAB BLOOD ORDERABLES Final Result Performing Organization Address City/[facility]/ZIP Co de Phone Number [facility] [address] [place] [phone] * (ABNORMAL) Comprehensive Metabolic Panel (04/18/2024 1:43 PM EST) Sodium 139 135 - 145 mmol/L [facility] Potassium 4.0 3.3 - 5.1 mmol/L [facility] Chloride 108 96 - 108 mmol/L [facility] Carbon Dioxide 24 22 - 29 mmol/L [facility] Anion Gap 11(L) 12 - 20 [facility] Urea Nitrogen (BUN) 14 9 - 16 mg/dL [facility] Creatinine, Serum 1.03 0.5 - 1.4 mg/dL [facility] Estimated Glomerular Filt Rate >60 [facility] Comment:Chronic Kidney Disea se: Estimated GFR < 60 mL/min/[id number] Kidney Disease: Estimated GFR < 15 mL/min/1.73m2 Glucose 100 60 - 115 mg/dL [facility] Calcium 9.0 8.4 - 10.2 mg/dL [facility] Bilirubin, Total 0.4 0.0 - 1.0 mg/dL [facility] Aspartate Amino Transferase 53(H) 5 - 37 U/L [facility] Alanine Aminotransferase 88(H) 0 - 40 U/L [facility] Total Protein 8.0 6.5 - 8.0 g/dL [facility] Albumin Level 4.6 3.5 - 5.0 g/dL [facility] Alkaline Phosphatase 73 39 - 117 U/L [facility] Blood Venous blood specimen / Unknown 04/18/2024 1:43 PM EST 04/18/2024 5:46 PM EST us Justen Deal MD LAB BLOOD ORDERABLES Final Result Performing Organization Address City/[facility]/ZIP Co de Phone Number [facility] [address] [place] [phone] from Last 3 Months Insurance [facility] C3 Care Teams Leaf Coverer Relationship Specialty Start Date End Date Justen Deal MD [address] [place] [phone] PCP - General Internal Medicine 04/18/24
--- OUTSIDE RECORDS SUMMARY | 2024-04-20 17:57 | XMS_ITS | Encounter Summary ---
Author Organization [employer] Address [address] [facility] [address] [place] [address] Care Team Providers Care Global Clinical Leader Name Role Phone Justen Deal MD Primary Care Provider [phone] Encounter Details Date Type Department Care Team [...] Description 07/17/2024 10:45 AM EDT Office Visit [facility] [address] [place] [address] Justen Deal MD [address] [place] [address] documented as of this encounter Visit Diagnoses Not on filedocumented in this encounter Additional Health Concerns Assessment Noted Time PHQ-9 Depression Total Score: 0 04/18/19 25 1:53 PM EST documented as of this encounter Care Teams Global Clinical Leader Relationship Specialty Start Date End Date Justen Deal MD [address] [place] [address] PCP - General Internal Medicine 04/18/24 documented as of this encounter
== END 2024-04-20 14:03 | disposition home or self-care (01) ==
LOC: HO.HHCX 14:02
PROVIDERS: Visit Provider Internal Medicine
DX: M54.50 Low back pain, unspecified (principal); G89.29 Other chronic pain
CPT/HCPCS: 72100

== ENCOUNTER → 2024-04-20 14:08 | Outpatient (BNV) | payer MEDICAID, SELFPAY | PROVIDERS: Visit Provider Radiology Diagnostic Radiology | DX: M54.50 Low back pain, unspecified (principal) | CPT/HCPCS: 72100 ==